=== PATIENT | female | born 1960 | race Caucasian/White ===

== ENCOUNTER → 2016-08-12 | Outpatient (CLI) | payer BC ==
[~2016-08-12] MED LIST: ATV/1 PO; BND25 PO; CALC600T9 PO
--- NOTE | 2016-08-13 13:35 | MAMMOGRAPHY REPORT ---
BILATERAL DIGITAL SCREENING MAMMOGRAM TOMOSYNTHESIS WITH CAD: 08/12/2016 CLINICAL HISTORY: Routine screening examination. TECHNIQUE: Breast tomosynthesis in addition to standard 2D mammography was performed. Current study was also evaluated with a Computer Aided Detection (CAD) system. COMPARISON: Comparison is made to exams dated: 08/07/2015 mammogram, 08/01/2014 mammogram, 07/20/2013 m ammogram, 07/14/2012 mammogram, 07/09/2011 mammogram, and 07/03/2010 mammogram - [facility]. BREAST COMPOSITION: The tissue of both breasts is heterogeneously dense, which may obscure small ma sses. FINDINGS: The parenchymal pattern is similar to prior exams. No developing mass, architectural dis tortion or cluster of suspicious microcalcifications is seen in either breast. IMPRESSION: ACR BI-RADS CATEGORY 2: BENIGN There is no mammographic evidence of malignancy. A 1 year screening mammogram is recommended. The p atient will receive written notification of the results. Approximately 10% of breast cancers are not detected with mammography. A negative mammographic repor t should not delay biopsy if a clinically suggestive mass is present. Lashay Sanders M.D. ay/:08/12/2016 17:43:29 Consumer Marketing Manager: Luiza WHITLOCK(R)(M), [facility] letter sent: Normal 1/2 BI-RADS Code: ACR BI-RADS Category 2: Benign
== END | disposition home or self-care (01) ==
LOC: C.MAMM 17:00
PROVIDERS: ATTEND Obstetrics & Gynecology
DX: Z12.31 Encounter for screening mammogram for malignant neoplasm of breast (principal)

== ENCOUNTER → 2016-10-15 | Outpatient (CLI) | payer BC ==
[~2016-10-15] MED LIST changes: +ACET-749 PO; -BND25 PO; +DIPH25CA5 PO; +ONDA4TAB10 SL
--- NOTE | 2016-10-15 16:49 | DIAGNOSTIC IMAGING REPORT ---
RIGHT RIBS UNILATERAL WITH PA CHEST CLINICAL HISTORY: COUGH, RIB PAIN ON RIGHT SIDE Right COMPARISON STUDY: None. FINDINGS: The lungs are clear. No pleural effusions. No pneumothorax. The heart is normal in size. No rib fractures. Old, healed left clavicle fracture. IMPRESSION: No rib fractures. No pneumothorax. Electronically signed by: Kirill Hu M.D. 10/15/2016 4:48 PM Dictated Date/Time: 10/15/2016 4:46 PM
== END | disposition home or self-care (01) ==
LOC: C.RAD1850 16:21
PROVIDERS: ATTEND Physician Assistant
DX: R05 Cough (principal); R07.81 Pleurodynia

== ENCOUNTER 2017-04-07 09:47 | Emergency (ER) | payer BC ==
[~2017-04-07] VITALS: Ht 167.6 cm; Wt 60.4 kg
[~2017-04-07 09:47] MED LIST changes: -ACET-749 PO; -ONDA4TAB10 SL
[2017-04-07 09:50] VITALS: TEMP 36.5; Ht 167.6 cm; Wt 60.4 kg
[2017-04-07] MEDS ORDERED: SODIUM CHLORIDE 0.9% 1000ML 1,000 ML IV STA (09:56)
[2017-04-07] MEDS ORDERED: ONDANSETRON INJ 2 MG/ML 2 ML VIAL IV STA ×2 (09:56→11:54)
[2017-04-07] MEDS ORDERED: MoRPHine SULFATE 4 MG/ML 1 ML CARP\\VIAL IV PRN (10:00)
--- NOTE | 2017-04-07 10:13 | DIAGNOSTIC IMAGING REPORT ---
CHEST ONE VIEW PORTABLE CLINICAL HISTORY: Pain, radiating to the abdomen. COMPARISON STUDY: 10/15/2016 FINDINGS: The cardiac and mediastinal contours are normal. There is no evidence of focal pulmonary consolidation. There is no evidence of failure. No pleural effusions are visualized. There is an old left ventricular fracture. There is no free intraperitoneal air.[ IMPRESSION: No active disease in the chest. Electronically signed by: Amari Acuña M.D. 04/07/2017 10:11 AM Dictated Date/Time: 04/07/2017 10:11 AM
--- NOTE | 2017-04-07 10:36 | EMERGENCY ROOM VISIT NOTE ---
History Report prepared by Felix: Aurelia Dhaliwal Under the Supervision of: Victoriano TorresO. First contact with patient: 09:53 Chief Complaint: BACK PAIN Stated Complaint: ACUTE L SIDE BACK PAIN SHARP STABBING History of Present Illness The patient is a 56 year old female who presents to the Emergency Room with complaints of a sudden onset of left sided back pain beginning WEIGHTER. The patient was at work this morning and feeling fine. She was leaning to her left to talk on the phone and when she went to sit up straight she states that "It felt like I was punched in the side and the pain made me catch my breath." She has had constant, stabbing pain in her back since then. The patient's pain worsens with movement and taking a deep breath. She rates her pain as an 8/10 in severity. She notes some nausea. The patient denies chest pain, shortness of breath, vomiting, and urinary symptoms. She has never had pain like this before. She denies any personal history of kidney stones. Source of History: patient Onset: WEIGHTER Position: back Symptom Intensity: 8/10 Quality: stabbing Timing: constant Modifying Factors (Worsening): breathing, movement Associated Symptoms: + nausea, No chest pain, No SOB, No vomiting, No urinary symptoms Review of Systems See HPI for pertinent positives & negatives. A total of 10 systems reviewed and were otherwise negative. Past Medical & Surgical Medical Problems: (1) Allergy status to narcotic agent (2) Sprain lumbar region (3) Urinary tract infection Family History Cancer Social History Smoking Status: Never Smoker Smokeless Tobacco Use: No Alcohol Use: occasionally Marital Status: Housing Status: lives with significant other Occupation Status: employed Current/Historical Medications Scheduled Calcium Carbonate-Vitamin D (Calcium + D), 1 TAB PO QAM Ondasetron Odt (Zofran Odt), 4 MG SL Q6H Scheduled PRN Acetaminophen/Codeine (Tylenol W/Codeine #3), 1-2 TABS PO Q6 PRN for Pain Allergies Coded Allergies: Acetaminophen (Verified Allergy, Unknown, N/V, 04/07/17) Patient stats she has no allergy to Acetaminaphin or asprin Aspirin (Verified Allergy, Unknown, N/V, 04/07/17) Patient stats she has no allergy to Acetaminaphin or asprin Oxycodone (Verified Allergy, Unknown, N/V, 04/07/17) Propoxyphene (Verified Allergy, Unknown, N/V, 04/07/17) Physical Exam Vital Signs Date Time Temp Pulse Resp B/P (MAP) Pulse Ox O2 Delivery O2 Flow Rate FiO2 04/07/17 13:50 68 18 107/77 97 04/07/17 12:09 69 16 103/72 96 04/07/17 09:50 36.5 78 20 118/80 94 Room Air Physical Exam GENERAL: Patient is awake, alert, very anxious appearing and appears to be in pain. EYES: The conjunctivae are clear. The pupils are round and reactive. EARS, NOSE, MOUTH AND THROAT: The nose is without any evidence of any deformity. Mucous membranes are moist tongue is midline NECK: The neck is nontender and supple. RESPIRATORY: Normal respiratory effort is noted there is no evidence of wheezing rhonchi or rales CARDIOVASCULAR: Regular rate and rhythm noted there no murmurs rubs or gallops normal S1 normal S2 GASTROINTESTINAL: The abdomen is soft. Bowel sounds are present in all quadrants. Abdomen is nontender PELVIS: The Pelvis is stable. No tenderness to palpation is noted. BACK: There was left CVA tenderness to percussion, no midline tenderness or or step-off noted, range of motion appeared intact. MUSCULOSKELETAL/EXTREMITIES: There is no evidence of gross deformity full range of motion is noted in the hips and shoulders SKIN: There is no obvious evidence of any rash. There are no petechiae, pallor or cyanosis noted. NEUROLOGIC: Patient is awake alert and oriented x3 strength is symmetric patellar reflexes are 2+ bilaterally Medical Decision & Procedures ER Provider Diagnostic Interpretation: Radiology results as stated below per my review and radiologist interpretation: CHEST ONE VIEW PORTABLE CLINICAL HISTORY: Pain, radiating to the abdomen. COMPARISON STUDY: 10/15/2016 FINDINGS: The cardiac and mediastinal contours are normal. There is no evidence of focal pulmonary consolidation. There is no evidence of failure. No pleural effusions are visualized. There is an old left ventricular fracture. There is no free intraperitoneal air.[ IMPRESSION: No active disease in the chest. Electronically signed by: Amari Acuña M.D. 04/07/2017 10:11 AM Dictated Date/Time: 04/07/2017 10:11 AM ABD/PELVIS NO IV OR ORAL CONT CT DOSE: 259.10 mGy.cm HISTORY: Flank pain left flank pain TECHNIQUE: Multiaxial CT images of the abdomen and pelvis were performed without contrast. A dose lowering technique was utilized adhering to the principles of ALARA. COMPARISON STUDY: None. FINDINGS: The lung bases are clear. Liver spleen and pancreas appear homogeneous. Very small hiatal hernia. Kidneys are negative for calcification or hydronephrosis. Ureters are negative for distention. No significant free fluid within the pelvic cul-de-sac. 2.5 cm right ovarian cyst. Bowel pattern throughout is nonobstructive. The appendix is maximum diameter of 5 mm and contains air. Bladder is midline with no contained calcifications. The bony structures show no lytic or blastic process. IMPRESSION: 1. 2.5 cm right ovarian cyst. 2. No evidence for an obstructing urinary tract calculus. 3. The examination of the abdomen and pelvis is otherwise negative. The above report was generated using voice recognition software. It may contain grammatical, syntax or spelling errors. Electronically signed by: Alan Calderon M.D. 04/07/2017 11:16 AM Dictated Date/Time: 04/07/2017 11:08 AM Laboratory Results 04/07/17 10:30 Red Blood Count 4.54, Mean Corpuscular Volume 90.1, Mean Corpuscular Hemoglobin 31.9, Mean Corpuscular Hemoglobin Concent 35.5, Mean Platelet Volume 10.1, Neutrophils (%) (Auto) 45.8, Lymphocytes (%) (Auto) 40.8, Monocytes (%) (Auto) 11.0, Eosinophils (%) (Auto) 1.5, Basophils (%) (Auto) 0.7, Neutrophils # (Auto ) 2.07, Lymphocytes # (Auto) 1.85, Monocytes # (Auto) 0.50, Eosinophils # (Auto ) 0.07, Basophils # (Auto) 0.03 04/07/17 10:30 Test 04/07/17 10:30 04/07/17 11:30 04/07/17 12:26 White Blood Count 4.53 K/uL (4.8-10.8) Red Blood Count 4.54 M/uL (4.2-5.4) Hemoglobin 14.5 g/dL (12.0-16.0) Hematocrit 40.9 % (37-47) Mean Corpuscular Volume 90.1 fL (80-100) Mean Corpuscular Hemoglobin 31.9 pg (25-34) Mean Corpuscular Hemoglobin Concent 35.5 g/dl (32-36) Platelet Count 229 K/uL (130-400) Mean Platelet Volume 10.1 fL (7.4-10.4) Neutrophils (%) (Auto) 45.8 % Lymphocytes (%) (Auto) 40.8 % Monocytes (%) (Auto) 11.0 % Eosinophils (%) (Auto) 1.5 % Basophils (%) (Auto) 0.7 % Neutrophils # (Auto) 2.07 K/uL (1.4-6.5) Lymphocytes # (Auto) 1.85 K/uL (1.2-3.4) Monocytes # (Auto) 0.50 K/uL (0.11-0.59) Eosinophils # (Auto) 0.07 K/uL (0-0.5) Basophils # (Auto) 0.03 K/uL (0-0.2) RDW Standard Deviation 41.4 fL (36.4-46.3) RDW Coefficient of Variation 12.5 % (11.5-14.5) Immature Granulocyte % (Auto) 0.2 % Immature Granulocyte # (Auto) 0.01 K/uL (0.00-0.02) Prothrombin Time 10.3 SECONDS (9.0-12.0) Prothromb Time International Ratio 1.0 (0.9-1.1) Activated Partial Thromboplast Time 25.9 SECONDS (21.0-31.0) Partial Thromboplastin Ratio 1.0 Anion Gap 9.0 mmol/L (3-11) Est Creatinine Clear Calc Drug Dose 81.5 ml/min Estimated GFR () 107.5 Estimated GFR (Non- 92.7 BUN/Creatinine Ratio 24.5 (10-20) Calcium Level 9.3 mg/dl (8.5-10.1) Total Bilirubin 0.8 mg/dl (0.2-1) Direct Bilirubin 0.2 mg/dl (0-0.2) Aspartate Amino Transf (AST/SGOT) 18 U/L (15-37) Alanine Aminotransferase (ALT/SGPT) 22 U/L (12-78) Alkaline Phosphatase 72 U/L (45-117) Troponin I < 0.015 ng/ml (0-0.045) Total Protein 7.6 gm/dl (6.4-8.2) Albumin 4.3 gm/dl (3.4-5.0) Lipase 179 U/L (73-393) Urine Color YELLOW Urine Appearance CLEAR (CLEAR) Urine pH 7.0 (4.5-7.5) Urine Specific [place] 1.013 (1.000-1.030) Urine Protein NEG (NEG) Urine Glucose (UA) NEG (NEG) Urine Ketones NEG (NEG) Urine Occult Blood NEG (NEG) Urine Nitrite NEG (NEG) Urine Bilirubin NEG (NEG) Urine Urobilinogen NEG (NEG) Urine Leukocyte Esterase NEG (NEG) D-Dimer 240 ug/L FEU (0-500) Laboratory results per my review. Medications Administered Medications (Trade) Dose Ordered Sig/Cathi Route Start Time Stop Time Status Last Admin Dose Admin Sodium Chloride 1,000 ml @ 999 mls/hr Q1H1M STAT IV 04/07/17 09:56 04/07/17 10:56 DC 04/07/17 10:36 999 MLS/HR Ondansetron HCl (Zofran Inj) 4 mg NOW STAT IV 04/07/17 09:56 04/07/17 09:59 DC 04/07/17 10:36 4 MG Morphine Sulfate (MoRPHine SULFATE INJ) 4 mg Q15M PRN IV 04/07/17 10:00 04/07/17 14:08 DC 04/07/17 10:37 4 MG Ondansetron HCl (Zofran Inj) 4 mg NOW STAT IV 04/07/17 11:54 04/07/17 11:55 DC 04/07/17 11:54 4 MG ECG Indication: back/shoulder pain Rate (beats per minute): 63 Rhythm: normal sinus Findings: no acute ischemic change, no ectopy Comparison ECG Date: 07/14/2003 Change: no significant change ED Course 0953: The patient was evaluated in room A10. A complete history and physical examination were performed. 0956: Zofran 4 mg IV, NSS 1000 ml @ 999 mls/hr IV 1000: Morphine sulfate 4 mg IV - PRN 1154: Zofran 4 mg IV 1224: I updated the patient and she is doing well. 1332: I reassessed the patient at this time. She is feeling better and resting comfortably. I discussed the results and treatment plan with the patient. I answered all pertaining questions that she had. She expressed understanding and verbalized agreement. The patient will be discharged home. Medical Decision Differential diagnosis: Etiologies such as renal colic, appendicitis, diverticulitis, mesenteric ischemia, aortic pathology, infections, inflammatory bowel disease, PUD, biliary pathology, UTI, as well as others were entertained. The patient is a 56-year-old female who presented to the emergency department for an evaluation of left flank pain. The patient had reproducible flank pain with percussion. Pain was worsened with any movement or deep breathing. Initially I thought the patient's condition was consistent with renal colic. The patient did not have hematuria and her CAT scan did not show any acute ureteral calculi. I discussed the patient's laboratory and radiographic studies with her. She was treated with IV fluids IV pain medicine and IV antiemetics. On subsequent reevaluation she was feeling much better. She was encouraged to rest and avoid any strenuous activity. He was also encouraged to call her primary care physician to schedule follow-up appointment but return to the emergency department immediately if symptoms change worsen or the need arises. Medication Reconcilliation Current Medication List: was personally reviewed by me Blood Pressure Screening Patient's blood pressure: Normal blood pressure Impression Primary Impression: Left flank pain Scribe Attestation The scribe's documentation has been prepared under my direction and personally reviewed by me in its entirety. I confirm that the note above accurately reflects all work, treatment, procedures, and medical decision making performed by me. Departure Information Dispostion Home / Self-Care Prescriptions Ondasetron Odt (ZOFRAN ODT) 4 Mg Tab 4 MG SL Q6H for Nausea, #15 TAB Prov: Alden Rahman, DO 04/07/17 Acetaminophen/Codeine (Tylenol W/Codeine #3) 300 Mg/30 Mg Tab 1-2 TABS PO Q6 Y for Pain, #15 TAB Prov: Alden Rahman, DO 04/07/17 Referrals José Luis Forrest M.D. (PCP) Forms HOME CARE DOCUMENTATION FORM, IMPORTANT VISIT INFORMATION Patient Instructions ED Low Back Pain Injury, My [facility] Additional Instructions Continue all medications as prescribed. Rest and avoid any strenuous activity. Call your family to schedule follow-up appointment. Return to the emergency apartment immediately if symptoms change worsen or the need arises.
[2017-04-07 10:39] LABS: BASO % 0.7 %; BASO ABS # 0.03 K/uL (0-0.2); COMPLETE YES; EOS % 1.5 %; HEMATOCRIT 40.9 % (37-47); IG% 0.2 %; LYMPH % 40.8 %; LYMPH ABS # 1.85 K/uL (1.2-3.4); MEAN CELL VOLUME 90.1 fL (80-100); MEAN CORPUSCULAR HEMOGLOBIN 31.9 pg (25-34); MEAN CORPUSCULAR HGB CONC 35.5 g/dl (32-36); MEAN PLATELET VOLUME 10.1 fL (7.4-10.4); NEUT % 45.8 %; PLATELET COUNT 229 K/uL (130-400); RED BLOOD COUNT 4.54 M/uL (4.2-5.4); WHITE BLOOD COUNT 4.53 K/uL (4.8-10.8)
[2017-04-07 10:48] LABS: PROTHROMBIN TIME (PATIENT) 10.3 SECONDS (9.0-12.0)
[2017-04-07 10:57] LABS: ALT/SGPT 22 U/L (12-78); AST/SGOT 18 U/L (15-37); BLOOD UREA NITROGEN 18 mg/dl (7-18); BUN/CREATININE RATIO 24.5 (10-20); CALCIUM 9.3 mg/dl (8.5-10.1); CARBON DIOXIDE 26 mmol/L (21-32); CHLORIDE 103 mmol/L (98-107); CREATININE 0.73 mg/dl (0.60-1.20); GLUCOSE 84 mg/dl (70-99); POTASSIUM 4.1 mmol/L (3.5-5.1); SODIUM 138 mmol/L (136-145)
[2017-04-07 11:00] LABS: ALKALINE PHOSPHATASE 72 U/L (45-117)
--- NOTE | 2017-04-07 11:17 | DIAGNOSTIC IMAGING REPORT ---
ABD/PELVIS NO IV OR ORAL CONT CT DOSE: 259.10 mGy.cm HISTORY: Flank pain left flank pain TECHNIQUE: Multiaxial CT images of the abdomen and pelvis were performed without contrast. A dose lowering technique was utilized adhering to the principles of ALARA. COMPARISON STUDY: None. FINDINGS: The lung bases are clear. Liver spleen and pancreas appear homogeneous. Very small hiatal hernia. Kidneys are negative for calcification or hydronephrosis. Ureters are negative for distention. No significant free fluid within the pelvic cul-de-sac. 2.5 cm right ovarian cyst. Bowel pattern throughout is nonobstructive. The appendix is maximum diameter of 5 mm and contains air. Bladder is midline with no contained calcifications. The bony structures show no lytic or blastic process. IMPRESSION: 1. 2.5 cm right ovarian cyst. 2. No evidence for an obstructing urinary tract calculus. 3. The examination of the abdomen and pelvis is otherwise negative. The above report was generated using voice recognition software. It may contain grammatical, syntax or spelling errors. Electronically signed by: Alan Calderon M.D. 04/07/2017 11:16 AM Dictated Date/Time: 04/07/2017 11:08 AM
[2017-04-07 13:04] LABS: URINE APPEARANCE CLEAR (CLEAR); URINE BILIRUBIN NEG (NEG); URINE COLOR YELLOW; URINE NITRITE NEG (NEG); URINE SPECIFIC GRAVITY 1.013 (1.000-1.030); UROBILINOGEN NEG (NEG)
[2017-04-07 13:11] LABS: MANUAL MICROSCOPIC REQUIRED? NO; REVIEW REQ? NO
[2017-04-07] MEDS ORDERED: ACET-749 PO (13:33)
[2017-04-07 13:50] VITALS: BP 107/77; PULSE 68; O2SAT 97
[2017-04-07] MEDS ORDERED: ONDA4TAB10 SL (13:58)
== END 2017-04-07 13:52 | disposition home or self-care (01) ==
LOC: C.EDB 09:47 → C.EDA 13:52
DX: R10.31 Right lower quadrant pain (principal); Z87.440 Personal history of urinary (tract) infections; Z80.9 Family history of malignant neoplasm, unspecified

== ENCOUNTER → 2017-08-25 | Outpatient (CLI) | payer OTHER ==
[~2017-08-25] MED LIST changes: +ACET-749 PO; -ATV/1 PO; -DIPH25CA5 PO; +ONDA4TAB10 SL
--- NOTE | 2017-08-26 07:56 | MAMMOGRAPHY REPORT ---
BILATERAL DIGITAL SCREENING MAMMOGRAM TOMOSYNTHESIS WITH CAD: 08/25/2017 CLINICAL HISTORY: Routine screening. The patient has no current complaints. TECHNIQUE: Breast tomosynthesis in addition to standard 2D mammography was performed. Current study was also evaluated with a Computer Aided Detection (CAD) system. COMPARISON: Comparison is made to exams dated: 08/07/2015 mammogram, 08/01/2014 mammogram, 07/20/2013 ma mmogram, 07/14/2012 mammogram, 07/09/2011 mammogram, and 07/03/2010 mammogram - [facility]ter. BREAST COMPOSITION: The tissue of both breasts is heterogeneously dense, which may obscure small mas ses. FINDINGS: No suspicious masses, calcifications, or areas of architectural distortion are noted in ei ther breast. There has been no significant interval change compared to prior exams. IMPRESSION: ACR BI-RADS CATEGORY 1: NEGATIVE There is no mammographic evidence of malignancy. A 1 year screening mammogram is recommended. The pa tient will receive written notification of the results. Approximately 10% of breast cancers are not detected with mammography. A negative mammographic report should not delay biopsy if a clinically suggestive mass is present. Claudia Zaragoza M.D. ah/:08/25/2017 16:38:31 Firing Pin Gauger: Luiza WHITLOCK(R)(M), [facility] letter sent: Normal 1/2 BI-RADS Code: ACR BI-RADS Category 1: Negative
== END | disposition home or self-care (01) ==
LOC: C.MAMM 16:11
PROVIDERS: ATTEND Internal Medicine
DX: Z12.31 Encounter for screening mammogram for malignant neoplasm of breast (principal)